=== PATIENT | female | born 1985 | race Caucasian/White ===

== ENCOUNTER 2021-09-16 09:19 | Emergency (ER) | payer OTHER ==
[~2021-09-16] VITALS: Ht 157.5 cm; Wt 99.8 kg
[2021-09-16] MEDS ORDERED: PEPCID AC20 MG PO (13:56)
== END 2021-09-16 14:00 ==
LOC: ER 09:19
DX: R13.10 Dysphagia, unspecified (principal)

== ENCOUNTER 2022-09-28 09:09 | Outpatient (CLI) | payer OTHER ==
[~2022-09-28 09:09] MED LIST: PEPCID AC20 MG PO
== END 2022-09-28 10:00 | disposition home or self-care (01) ==
LOC: MRI 09:09
PROVIDERS: ATTEND Orthopaedic Surgery
DX: M25.561 Pain in right knee (principal); M25.562 Pain in left knee
CPT/HCPCS: 73721

== ENCOUNTER 2023-03-08 08:57 | Outpatient (CLI) | payer OTHER | END 2023-03-08 08:58 | disposition home or self-care (01) | LOC: SONOGRAMA 08:57 | PROVIDERS: ATTEND Pathology Anatomic Pathology & Clinical Pathology | DX: D34 Benign neoplasm of thyroid gland (principal); E04.9 Nontoxic goiter, unspecified; E04.1 Nontoxic single thyroid nodule; E07.9 Disorder of thyroid, unspecified ==